=== PATIENT | female | born 1950 | race Caucasian/White ===

== ENCOUNTER 2021-09-10 14:16 | Outpatient (CLI) | payer MEDICARE, OTHER, SELFPAY ==
[2021-09-10 14:52] VITALS: BP 123/67; PULSE 77; RESP 16; TEMP 36.4; O2SAT 97; BMI 26.6
[2021-09-10] MEDS: 0.9% Saline Lock 10 ML Syringe IV (14:52)
[2021-09-10 15:27] VITALS: BP 111/59; PULSE 60; RESP 16; TEMP 36.4; O2SAT 98
[2021-09-10 16:15] VITALS: BP 122/69; PULSE 89; RESP 16; TEMP 36.7; O2SAT 93
== END 2021-09-10 23:59 | disposition home or self-care (01) ==
LOC: MS3OUT 14:17 → MS3 14:17
PROVIDERS: Referring Provider Nurse Practitioner Adult Health; Visit Provider Nurse Practitioner Adult Health
DX: U07.1 COVID-19 (principal)
CPT/HCPCS: J7050; M0245; Q0245; A4216